=== PATIENT | female | born 1990 | race Caucasian/White ===

== ENCOUNTER 2021-05-25 12:22 | Emergency (ER) | payer MEDICAID ==
[~2021-05-25] VITALS: Ht 154.9 cm; Wt 68.0 kg
[2021-05-25 12:28] VITALS: BP 127/77
--- NOTE | 2021-05-25 12:36 | NUR ---
PT AMB TO BED 6.
--- NOTE | 2021-05-25 12:48 | NUR ---
31 Y/O F C/O L SIDED FACIAL PAIN AND SWELLING 6/10 FOR 2 DAYS. PT HAD BROKEN TOOTH PAIN ON AND OFF FOR 2 MONTHS BUT DID NOT SEE A DENTIST. [facility] HX: PSORIASIS
--- NOTE | 2021-05-25 12:48 | NUR ---
DESTINI WHITTAKER AT BEDSIDE.
[2021-05-25] MEDS ORDERED: KETOROLAC 30 MG/ML VIAL IM ONE (12:50)
[2021-05-25] MEDS ORDERED: cefTRIAXone 1,000 MG in LIDOCAINE MPF 1% 2.1 ML IM ONE (12:50)
[2021-05-25] MEDS ORDERED: cefTRIAXone 1,000 MG VIAL ONE (12:55)
[2021-05-25] MEDS ORDERED: LIDOCAINE MPF 1% 5 ML ONE (12:55)
[2021-05-25] MEDS ORDERED: AMOX-1000 PO (12:58)
[2021-05-25] MEDS ORDERED: IBUP-2213 PO (12:58)
[2021-05-25] MEDS ORDERED: CHLO473S62 PO (13:02)
--- NOTE | 2021-05-25 13:17 | NUR ---
Patient discharged with v/s stable. Written and verbal after care instructions given and explained. Patient alert, oriented and verbalized understanding of instructions. Ambulatory with steady gait. All questions addressed prior to discharge. ID band removed. Patient advised to follow up with PMD. Rx of AMOXICILLIN/POTASSIUM, CHLORHEXIDINE GLUCONATE, IBUPROFEN given.Opportunity to ask questions provided and answered.
--- NOTE | 2021-05-25 13:18 | NUR ---
Chart checked and completed. The patient's care was reviewed and supervised by Kala Shanks RN.
== END 2021-05-25 13:16 | disposition home or self-care (01) ==
LOC: MED 12:22
DX: K04.7 Periapical abscess without sinus (principal); Z79.899 Other long term (current) drug therapy
CPT/HCPCS: 96372; 99284; J0696; J1885; J2001

== ENCOUNTER 2021-09-14 15:00 | Emergency (ER) | payer MEDICAID ==
[~2021-09-14] VITALS: Ht 157.5 cm; Wt 76.3 kg
[~2021-09-14 15:00] MED LIST: AMOX-1000 PO; CHLO473S62 PO; IBUP-2213 PO
[2021-09-14 15:09] VITALS: BP 104/68
[2021-09-14] MEDS ORDERED: AMOX-999 PO (15:57)
--- NOTE | 2021-09-14 16:10 | NUR ---
Patient discharged with v/s stable. Written and verbal after care instructions FOR DENTAL ABSCESS given and explained. Patient alert, oriented and verbalized understanding of instructions. Ambulatory with steady gait. All questions addressed prior to discharge. ID band removed. Patient advised to follow up with PMD. Rx of AMOXICILLIN given. Opportunity to ask questions provided and answered.
--- NOTE | 2021-09-14 16:27 | NUR ---
The patient's care was reviewed and supervised by ED Agency Nurse 7, RN, RN.
== END 2021-09-14 16:10 | disposition home or self-care (01) ==
LOC: MED 15:00
DX: K08.89 Other specified disorders of teeth and supporting structures (principal); Z79.2 Long term (current) use of antibiotics; Z79.899 Other long term (current) drug therapy; Z79.1 Long term (current) use of non-steroidal anti-inflammatories (NSAID)
CPT/HCPCS: 99283

== ENCOUNTER 2023-11-29 11:00 | Emergency (ER) | payer MEDICAID, OTHER ==
[~2023-11-29] VITALS: Ht 153.7 cm; Wt 88.5 kg
[~2023-11-29 11:00] MED LIST changes: +AMOX-999 PO
[2023-11-29 11:21] VITALS: BP 159/72; PULSE 112; RESP 17; TEMP 96.8; O2SAT 97
[2023-11-29 11:52] LABS: BASOPHILS % (AUTO) 0.2 % (0.0-2.0); EOSINOPHILS % (AUTO) 0.4 % (0.0-4.0); HEMATOCRIT 28.1 % (36-48); HEMOGLOBIN 9.7 g/dL (12.0-16.0); LYMPHOCYTES # (AUTO) 1.9 K/uL (2.5-16.5); LYMPHOCYTES % (AUTO) 24.4 % (20.5-51.1); MEAN CORPUSCULAR HEMOGLOBIN 29 pg (27-31); MEAN CORPUSCULAR HGB CONC 35 g/dL (33-37); MEAN CORPUSCULAR VOLUME 83.9 fL (80-94); MONOCYTES # (AUTO) 0.6 K/uL (0.8-1.0); NEUTROPHILS # (AUTO) 5.4 K/uL (1.8-7.7); PLATELET COUNT (AUTO) 197 K/uL (140-450); RED BLOOD CELL COUNT(AUTO) 3.36 MIL/uL (4.20-5.40); RED CELL DISTRIBUTION WIDTH 13.7 % (11.6-13.7); WHITE BLOOD COUNT (AUTO) 7.9 K/uL (4.8-10.8)
[2023-11-29 11:59] LABS: ANION GAP 8.9 (8-16); CALCIUM 8.4 mg/dL (8.5-10.1); CARBON DIOXIDE 27.7 mmol/L (21-32); CREATININE 0.6 mg/dL (0.6-1.3); POTASSIUM 3.6 mmol/L (3.5-5.1)
[2023-11-29 12:03] LABS: ALBUMIN 2.3 g/dL (3.4-5.0); BILIRUBIN,DIRECT 0.1 mg/dL (0.0-0.3); TOTAL BILIRUBIN 0.2 mg/dL (0.0-1.0); TOTAL PROTEIN, SERUM 6.3 g/dL (6.4-8.2)
[2023-11-29 12:45] LABS: BILIRUBIN,URINE 2+ (NEGATIVE); BLOOD, URINE NEGATIVE (NEGATIVE); COLOR,URINE YELLOW (YELLOW); LEUKOCYTE ESTERASE ,URINE TRACE (NEGATIVE); NITRITE, URINE NEGATIVE (NEGATIVE); PROTEIN,URINE 2+ (NEGATIVE); UGLUCOSE NEGATIVE (NEGATIVE)
[2023-11-29 12:47] LABS: APPEARANCE,URINE SLIGHTLY CLOUDY (CLEAR)
[2023-11-29 12:51] LABS: ICTOTEST NEGATIVE (NEGATIVE)
[2023-11-29 12:54] LABS: BACTERIA,URINE 2+ /HPF (None Seen); MUCUS,URINE 2+ /LPF (None Seen); RBC,URINE 0-5 /HPF (0-5); SQUAMOUS EPITHELIAL CELL,UR >100 /LPF (0-3 (FEW))
[2023-11-29 12:55] LABS: HYALINE CASTS, URINE 0-10 /LPF (None Seen)
[2023-11-29] MEDS ORDERED: CEPH-588 PO (13:56)
[2023-11-29] MEDS ORDERED: PNV1TABL5 PO (13:56)
[2023-11-29 14:11] VITALS: BP 137/80; PULSE 80; RESP 18; TEMP 97.3; O2SAT 98
== END 2023-11-29 14:13 | disposition home or self-care (01) ==
LOC: MED 11:00
DX: O23.43 Unspecified infection of urinary tract in pregnancy, third trimester (principal); N39.0 Urinary tract infection, site not specified; Z3A.33 33 weeks gestation of pregnancy; Z79.1 Long term (current) use of non-steroidal anti-inflammatories (NSAID); Z79.2 Long term (current) use of antibiotics; Z79.899 Other long term (current) drug therapy
CPT/HCPCS: 36415; 76805; 80048; 80076; 81001; 81025; 83690; 84702; 85025; 87086; 99284; Q0092